=== PATIENT | male | born 1955 | race Caucasian/White ===

== ENCOUNTER → 2016-08-06 | Outpatient (CLI) | payer OTHER ==
[~2016-08-06] MED LIST: ALLER-FEX180 MG PO; AMITRIPTYLINE H10 M3 PO; AMLODIPINE BESYL5 MG PO; FLOMAX0.4 MG PO; LYRICA 50 MG50 MG PO; MEDROL DOSPAK21 TAB PO; MS CONTIN15 MG PO; NABUMETONE 500500 M1 PO; NABUMETONE 750750 M1 PO; NORCO 5-325 TA1 EACH PO; PERCOCET 10-321 EACH PO; PERCOCET PO; ZESTORETIC 20-1 EAC2 PO; [UNRECOGNIZED DRUG - REMARK]
== END ==
LOC: MRI 09:40
DX: M54.12 Radiculopathy, cervical region (principal); M54.2 Cervicalgia; M25.512 Pain in left shoulder

== ENCOUNTER → 2016-09-10 | Outpatient (CLI) | payer OTHER ==
[~2016-09-10] VITALS: Ht 177.8 cm; Wt 94.2 kg
--- NOTE | ~2016-09-10 | HPC ---
[facility] [address] [address] PAIN MANAGEMENT CONSULTATION Name: COLLIN MUELLER Room #: REG JC Cheli#: [id number] Admission: 09/10/16 Attend Phys: Corwin Edwards DO Discharge: Date of : 57 Report #: [id number] THIS REPORT FOR: //name// CC: Corwin Bautista MD DATE OF SERVICE: 09/10/2016 REFERRING PHYSICIAN: Bhavesh Bautista M.D. CHIEF COMPLAINT: Low back pain, lower extremity pain and paresthesias, chronic neck pain, bilateral upper extremity pain and paresthesias. HISTORY OF PRESENT ILLNESS: As you know, the patient is a 61-year-old male who returns today in followup visit with continued neck pain, bilateral upper extremity pain, low back pain and bilateral lower extremity pain. The patient indicates that he has appointments with neurosurgery in the very near future. He states he has been referred back to our clinic by Dr. Bhavesh Bautista. We contacted Dr. Bautista's office to question the reason for the referral. Dr. Bautista's office indicated today; he was not referred back to our clinic. He was advised to follow up with neurosurgery. The patient was under the impression he had to see us before he could move forward with neurosurgery options. He is here today indicating pain level of 8/10. He states his pain is dull, aching and sharp in sensation. He has had pain management in [place] in the past and was hopeful that he can return to [place] and see a neurosurgeon and undergo surgery. ALLERGIES: No known drug allergies. CURRENT MEDICATIONS: Amlodipine 5 mg per day and lisinopril and hydrochlorothiazide 20/25 once a day. SOCIAL HISTORY: The patient smokes up to a pack of tobacco per day. He has done so for 48 years. Denies IV or illicit drug use. Admits to 2 alcoholic beverages per week. He is employed, but is having difficulty with work due to ongoing pain. He is unaccompanied today. IMAGING: No new imaging available. PHYSICAL EXAMINATION: VITAL SIGNS: Blood pressure 147/92, pulse 106 and respiratory rate 20, unlabored. The patient is 97% on room air. Height 5 feet 10 inches tall, weight 207.6 pounds and BMI calculated at 29.8. GENERAL: Well-developed, well-nourished and well-hydrated 61-year-old male who appears stated age. He is placing current pain score at approximately 8/10. [facility] [address] [place] [address] PAIN MANAGEMENT CONSULTATION Name: COLLIN MUELLER Room #: REG [id number] Admission: 09/10/16 Attend Phys: Corwin Edwards DO Discharge: Date of : 57 Report #: [id number] HEENT: Normocephalic, atraumatic. Pupils equal, round and reactive to light. Extraocular muscles are intact. Sclerae nonicteric, without injection. Speech is fluent. The patient smells strongly of tobacco smoke. He is deemed a poor historian. EXTREMITIES: Show no clubbing, no cyanosis and no edema. MUSCULOSKELETAL: There is palpatory tenderness again noted over the paraspinal musculature of the lower lumbar spine. Seated straight leg raising negative. Supine straight leg raising positive, right. Romeo test negative. Modified Gaenslen's positive for axial back pain. The patient is using a cane for ambulation. Upper extremity strength appears equal and symmetrical. He is intact to light touch from C5 through T1 dermatomes. ASSESSMENT: 1. Symptomatic lumbar radiculopathy. 2. Spinal stenosis of the lumbar spine. 3. Displacement of lumbar intervertebral disk with radiculopathy. 4. Lumbosacral spondylosis with radiculopathy. 5. Chronic neck pain. 6. Chronic intractable pain. PLAN: 1. The patient has returned to our clinic per his recollection via referral from Dr. Bautista's office. We have contacted Dr. Bautisat's office to determine what exactly they wished us to evaluate in this patient's case. The patient stated he is looking toward surgical options for his low back and his cervical region. At this point, he does not need interventional pain management. Dr. Bautista's office indicates today that they did not refer the patient back to our clinic. Apparently, there was some misunderstanding. The patient was to see neurosurgery. He believed he had to go through pain management to get the referral. This is not the case. I have discussed with the patient today that if he is looking toward surgical options, certainly intervention treatments would be of little or no benefit. We recommend he follow up with a neurosurgeon as he is not interested in interventional treatments with our clinic. 2. No medication changes were made at today's visit. We would recommend the patient continue current therapy. We wish to thank you for the opportunity to see this patient again in consultation, though I believe this was in air. We will be returning his care to your capable hands and wish the patient well with his impending surgical procedures. I will be discharging him back to your clinic. By: [id number] [id number] Corwin Edwards DO /nt
[2016-09-10 14:33] VITALS: BP 147/92
== END ==
LOC: PAIN 06:37
DX: M54.5 Low back pain (principal); M79.622 Pain in left upper arm; M79.621 Pain in right upper arm; F17.210 Nicotine dependence, cigarettes, uncomplicated; M47.27 Other spondylosis with radiculopathy, lumbosacral region; M48.06 Spinal stenosis, lumbar region; M51.16 Intervertebral disc disorders with radiculopathy, lumbar region; M54.2 Cervicalgia; I10 Essential (primary) hypertension

== ENCOUNTER 2019-11-14 13:54 | Emergency (ER) | payer OTHER ==
[~2019-11-14] VITALS: Ht 177.8 cm; Wt 104.3 kg
[2019-11-14] MEDS ORDERED: NEURONTIN600 MG PO (14:27)
[2019-11-14] MEDS ORDERED: NEURONTIN300 MG PO (14:28)
[2019-11-14] MEDS ORDERED: VALTREX1000 MG PO (15:00)
[2019-11-14] MEDS ORDERED: NORCO 10-325 T1 EACH PO (15:00)
[2019-11-14] MEDS ORDERED: CAPSAICIN42.5 GM TOP (15:01)
[2019-11-14 15:27] VITALS: BP 140/91
== END 2019-11-14 15:28 | disposition home or self-care (01) ==
LOC: ER 13:54
DX: B02.9 Zoster without complications (principal); M54.9 Dorsalgia, unspecified; Z79.899 Other long term (current) drug therapy

== ENCOUNTER 2019-12-14 05:46 | Inpatient (IN) | payer OTHER ==
[~2019-12-14] VITALS: Ht 177.8 cm; Wt 105.7 kg
[2019-12-14] VITALS (15 sets, daily range): BP systolic 100–151; BP diastolic 55–103
[~2019-12-14 05:46] MED LIST changes: +CAPSAICIN42.5 GM TOP; +NEURONTIN300 MG PO; +NEURONTIN600 MG PO; +NORCO 10-325 T1 EACH PO; +VALTREX1000 MG PO
[2019-12-14 06:08] LABS: ABSOLUTE NEUTROPHILS 5.3 thou/uL (1.4-8.2); BASOPHILS 1.1 % (0.0-2.0); EOSINOPHILS 3.1 % (0.0-3.0); HEMATOCRIT 49.6 % (42.0-52.0); HEMOGLOBIN 16.6 gm/dL (14.0-18.0); LYMPHOCYTES 27.3 % (24.0-44.0); MCH 30.7 pg (26.0-34.0); MCHC 33.4 g/dL (28.0-37.0); MCV 91.9 fL (80.0-100.0); MONOCYTES 9.9 % (1.0-8.0); PLATELET COUNT 185 thou/uL (150-400); POLYS 58.6 % (36.0-66.0); RDW 15.6 % (10.5-14.5); WBC 9.1 thou/uL (4.0-11.0)
[2019-12-14 06:28] LABS: CREATININE 1.5 mg/dL (0.7-1.3); POTASSIUM 3.9 mmol/L (3.5-5.1)
[2019-12-14 06:34] LABS: ALBUMIN 3.6 g/dL (3.4-5.0); TOTAL BILIRUBIN 0.4 mg/dL (0.2-1.0); TOTAL PROTEIN 7.5 g/dL (6.4-8.2)
[2019-12-14 09:04] LABS: BE(vivo) -6.5 mmol/L (-2 to +3); HCO3 21.4 mmol/L (22.0-26.0); PO2 216.5 mmHg (80.0-100.0); pH 7.241 (7.360-7.450); sO2 99.3 % (92.0-98.0)
--- NOTE | 2019-12-14 09:45 | NUR ---
CALLED RT TO ASK THEM TO HELP ME TRANSPORT ROOM 9 TO ICU AT THIS TIME
--- NOTE | 2019-12-14 12:31 | NUR ---
VASCULAR ACCESS CONSULTED FOR PICC PLACEMENT. PT'S LABS,MEDS,HX,ORDER AND CONSENT VERIFIED. NASIMA BASILIC ATTEMPTED UNABLE TO PASS GUIDEWIRE. NASIMA CEPHALIC WAS WIDELY PATENT WITH USG. 5FR TL POWER PICC TRIMMED TO 45CM INSERTED TO 0CM. STAT CXR ORDERED.PT SEDATED,TOLERATED WELL.
--- NOTE | 2019-12-14 13:18 | NUR ---
CXR CONFIRMED PICC AT [facility]. PICC RELEASED FOR IMMEDIATE USE PER PROTOCOL TO [facility]
--- NOTE | 2019-12-14 15:29 | NUR ---
PT ADMITTED TO ICU AT 1050 FROM THE ED. PT WAS INTUBATED AND SEDATED UPON BEING ADMITTED TO ICU. PICC PLACED BY IV ACCESS TEAM. NG TUBE PLACED TO LEFT NARE IN ICU, PLACED TO LIS. ETT, NGT, PICC ALL CONFIRMED VIA RADIOGRAPH. PT HAS SHINGLES ON RIGHT FLANK/BACK. POOR PERFUSION OF LOWER EXTREMITIES. PT CONFIRMS THAT PT USES MARIJUANA, NO ETOH OR OTHER ILLICIT DRUG USE. I WAS TOLD THAT PT SPECIFIED TO ED STAFF THAT HE DOES NOT WANT TO HAVE CPR DONE IN THE EVENT OF AN ARREST. PT AND FAMILY HAVE BEEN UPDATED AND EDUCATED ON PT CONDITION AND POC. PT PROGRESSING TOWARDS POC. AFEBRILE, NO BM, ADEQUATE UOP.
[2019-12-15] VITALS (40 sets, daily range): BP systolic 88–115; BP diastolic 44–69
[2019-12-15 03:28] LABS: BE(vivo) -4.7 mmol/L (-2 to +3); HCO3 20.6 mmol/L (22.0-26.0); PCO2 38.8 mmHg (35.0-45.0); PO2 121.6 mmHg (80.0-100.0); pH 7.342 (7.360-7.450); sO2 98.2 % (92.0-98.0)
[2019-12-15 04:21] LABS: ABSOLUTE NEUTROPHILS 17.9 thou/uL (1.4-8.2); BASOPHILS 0.2 % (0.0-2.0); HEMOGLOBIN 15.1 gm/dL (14.0-18.0); MCH 30.5 pg (26.0-34.0); MCHC 32.9 g/dL (28.0-37.0); MCV 92.8 fL (80.0-100.0); MONOCYTES 1.1 % (1.0-8.0); PLATELET COUNT 157 thou/uL (150-400); POLYS 94.7 % (36.0-66.0); RBC 4.96 mil/uL (4.50-6.00); RDW 15.9 % (10.5-14.5); WBC 18.9 thou/uL (4.0-11.0)
[2019-12-15 05:05] LABS: ALBUMIN 2.8 g/dL (3.4-5.0); CALCIUM 8.3 mg/dL (8.5-10.1); CREATININE 1.5 mg/dL (0.7-1.3); POTASSIUM 3.9 mmol/L (3.5-5.1); TOTAL BILIRUBIN 0.3 mg/dL (0.2-1.0); TOTAL PROTEIN 6.1 g/dL (6.4-8.2)
--- NOTE | 2019-12-15 08:30 | NUR ---
ASSUMMED CARE AT 0700 TODAY. PATIENT IS SEDATED. BP DIPPING INTO THE UPPER 80'S WITH MAP IN THE LOWER 60'S, NS RESTARTED, DR ANTONY ROUNDED AND AWARE. DR GOMES ROUNDED EARLIER.
--- NOTE | 2019-12-15 09:55 | NUR ---
DAUGHTER BLANCA UPDATED ON HER FATHER'S CONDITION AND POC. QUESTIONS ANSWERED AND REASSURANCE GIVEN.
--- NOTE | 2019-12-15 11:29 | NUR ---
PATIENT REMOVED FROM ISOLATION PER ORDER 2ND COVID WAS NEGATIVE.
--- NOTE | 2019-12-15 11:47 | NUR ---
Recommend start vital high protein at 25ml/hr as goal rate while on current propofol amounts. Defer any fluid needs to physician. If water flushes start, also add 1 packet beneprotein in each flush.
--- NOTE | 2019-12-15 11:55 | NUR ---
cm attempted to contact , Kassi and/or dtr, Kaitlynn. no answer. cm to f/u w/family @ later date.
--- NOTE | 2019-12-15 14:56 | NUR ---
cm called pt home number to see if could speak with , cm was able to speak with daughter alvarez via phone call. intro to cm, transition of care ie hh and rehab. she reported " they live in house, 12 steps with hand rail from front door, have stair lift up from garage. have ramp in back of house to get in. he independent when feeling ok, never had this happen before. he has cane and 4ww. broken pain and nerve surgery years ago and not sure if he had any therapy for that. he still drives vehicle. manage his own medication with little assistance from daughter. he able to cook, clean, shower and dress with out any assistance. dr nieto is his dr. mom is on hospice at home, and he had to go to [facility] today but do not tell him that."/daughter alvarez. will cont following as needed for dc needs.
--- NOTE | 2019-12-15 16:37 | NUR ---
SPOKE WITH THE PATIENT'S DAUGHTER, BLANCA AND UPDATED HER TO THE PATIENT'S STATUS AND COVID RESULTS OF NEGAIVE. PATIENT IS PROGRESSING BP AND URINE OUTPUT HAVE IMPROVED WITH NS INFUSING. TUBE FEEDINGS INITIATED, BOLUS GIVEN. TONGUE STILL PROTRUDING OUT OF MOUTH, ORAL CARE GIVEN Q2H, WILL CONTINUE TO MONITOR.
[2019-12-16] VITALS (24 sets, daily range): BP systolic 98–148; BP diastolic 50–85
[2019-12-16 08:20] LABS: CALCIUM 8.2 mg/dL (8.5-10.1); CREATININE 1.4 mg/dL (0.7-1.3); POTASSIUM 4.3 mmol/L (3.5-5.1)
--- NOTE | 2019-12-16 17:32 | NUR ---
ASSUMED CARE @ 0700 12/16/19, PT ASSESSMENT AND VSS COMPLETE PER ICU PROTOCOL. PT ENCOUNTERED ON FENTANYL AND PROPOFOL FOR VENT MANAGEMENT. SEDATION VACATION PERFORMED TODAY, PT NOT ABLE TO FOLLOW ANY COMMANDS. NO CPAP TODAY DUE TO TONGUE STILL SWOLLEN PER DR ANTONY. DTR BLANCA CALLED , CODE VERIFIED, UPDATED ON PT'S STATUS.
[2019-12-17] VITALS (41 sets, daily range): BP systolic 126–187; BP diastolic 67–101
[2019-12-17 04:33] LABS: BE(vivo) -2.8 mmol/L (-2 to +3); HCO3 22.9 mmol/L (22.0-26.0); PCO2 42.9 mmHg (35.0-45.0); PO2 92.8 mmHg (80.0-100.0); pH 7.345 (7.360-7.450); sO2 96.7 % (92.0-98.0)
[2019-12-17 04:48] LABS: HEMATOCRIT 44.6 % (42.0-52.0); HEMOGLOBIN 14.5 gm/dL (14.0-18.0); MCH 30.2 pg (26.0-34.0); MCHC 32.4 g/dL (28.0-37.0); PLATELET COUNT 144 thou/uL (150-400); RDW 16.4 % (10.5-14.5); WBC 20.5 thou/uL (4.0-11.0)
[2019-12-17 05:00] LABS: ALBUMIN 2.6 g/dL (3.4-5.0); CALCIUM 8.1 mg/dL (8.5-10.1); CREATININE 1.3 mg/dL (0.7-1.3); POTASSIUM 4.5 mmol/L (3.5-5.1); TOTAL BILIRUBIN 0.2 mg/dL (0.2-1.0)
[2019-12-17 06:18] LABS: ABSOLUTE NEUTROPHILS 19.7 thou/uL (1.4-8.2)
[2019-12-17 06:19] LABS: ANISOCYTOSIS 1+; LARGE PLATELETS FEW; PLATELET ESTIMATE DECREASED
--- NOTE | 2019-12-17 07:57 | NUR ---
[facility] AT 0700. PROPOFOL TURNED TO STANDBY FOR SEDATION VACATION. DR GOMES IN TO EXAMINE PATIENT AND INFORMED OF ELEVATED WBC COUNT.
--- NOTE | 2019-12-17 09:30 | NUR ---
PATIENT HAD EPISODE OF COUGHING CONTINUOUSLY WHEN PLACED ON SEDATION VACATION. HEART RATE INCREASED TO THE 90'S. RESP RATE IN THE 20'S. PLACED BACK ON SEDATION, AND NOW CALM AND RESTING QUIETLY. DAUGHTER BLANCA AT BEDSIDE, TEARFUL, REASSURANCE GIVEN AND UPDATED ON HER FATHER'S CONDITON AND POC.
--- NOTE | 2019-12-17 10:06 | NUR ---
If not extubated please adjust tube feed goal to 35ml/hr with propofol. If propofol discontinues over weekend, then goal TF of 60ml/hr
--- NOTE | 2019-12-17 10:52 | NUR ---
nutrition recommendation update: off propofol. Spoke with RN, no feeding pump available. Please bolus 1 box vital high protein every 4hr. Pt still on maintenance IVF, defer any fluid needs to physician.
--- NOTE | 2019-12-17 14:51 | NUR ---
DR GOMES NOTIFIED OF ELEVATED BP OF 165/96. ORDERS RECEIVED, PATIENT'S SEDATION CHANGED FROM PROPOFOL TO PRECEDEX. PRECEDEX AND FENTANYL INCREASED FOR SEDATION.
--- NOTE | 2019-12-17 16:52 | NUR ---
TIMOTHY reviewed chart. Pt remains intubated. Vent weaning today. Pt will need therapy evals when pt is able to participate. No weekend discharge planned. Following to assist as needed with discharge planning.
--- NOTE | 2019-12-17 19:31 | NUR ---
PATIENT PROGRESSING SLOWLY TONGUE IS PROTRUDING LESS. BP REMAINS ELEVATED IN THE 180/100 RANGE AFTER METOPOROL GIVEN. DR GOMES NOTIFIED, ORDERS RECEIVED. SEDATION ALSO INCREASED THROUGHOUT THE DAY. URINE OUTPUT ADEQUATE AVERAGING GREATER THAN 70 ML/HR. BOLUS TUBE FEEDINGS GIVEN, RESIDUAL THIS EVENING WAS 150 ML. BOLUS RATE REMAINS AT 100 ML Q4H. O2 SAT IN THE UPPER 90'S TODAY.
--- NOTE | 2019-12-17 21:29 | NUR ---
BP REMAINING HIGH AFTER METOPROLOL AND HYDRALAZINE SBP 180'S. SPOKE TO DR GOMES, CLONIDINE PATCH NOW ON PT'S LEFT ARM. PRN HYDARALAZINE ALSO ORDERED. WILL CALL DR IF BP MAINTAINS ABOVE 200.
[2019-12-18] VITALS (37 sets, daily range): BP systolic 139–191; BP diastolic 71–102
--- NOTE | 2019-12-18 09:29 | NUR ---
ASSUMED CARE AT 0700, ASSESSMENT AND VITAL SIGNS COMPLETED PER ICU PROTOCOL. DR. GOMES ROUNDED THIS AM, PLAN OF CARE DISCUSSED. RN WILL CONTINUE TO MONITOR.
[2019-12-18 11:47] LABS: BE(vivo) -1.2 mmol/L (-2 to +3); HCO3 22.9 mmol/L (22.0-26.0); PO2 98.5 mmHg (80.0-100.0); pH 7.409 (7.360-7.450); sO2 97.6 % (92.0-98.0)
[2019-12-18 13:37] LABS: HEMATOCRIT 46.9 % (42.0-52.0); HEMOGLOBIN 15.9 gm/dL (14.0-18.0); MCHC 33.9 g/dL (28.0-37.0); MCV 91.5 fL (80.0-100.0); RBC 5.13 mil/uL (4.50-6.00); RDW 15.8 % (10.5-14.5); WBC 16.1 thou/uL (4.0-11.0)
[2019-12-18 13:45] LABS: ALBUMIN 2.6 g/dL (3.4-5.0); CALCIUM 7.8 mg/dL (8.5-10.1); POTASSIUM 4.3 mmol/L (3.5-5.1); TOTAL PROTEIN 6.3 g/dL (6.4-8.2)
[2019-12-19] VITALS (34 sets, daily range): BP systolic 125–194; BP diastolic 72–94
[2019-12-19 08:30] LABS: HEMATOCRIT 48.4 % (42.0-52.0); MCH 30.5 pg (26.0-34.0); MCHC 33.1 g/dL (28.0-37.0); MCV 92.1 fL (80.0-100.0); RBC 5.26 mil/uL (4.50-6.00); RDW 16.4 % (10.5-14.5); WBC 14.7 thou/uL (4.0-11.0)
--- NOTE | 2019-12-19 08:47 | NUR ---
ASSUMED CARE AT 0700, ASSESSMENT AND VITAL SIGNS COMPLETED PER ICU PROTOCOL. DR. GOMES ROUNDED THIS AM, PLAN OF CARE DISCUSSED. RN WILL CONTINUE TO MONITOR.
[2019-12-19 08:56] LABS: ALBUMIN 2.4 g/dL (3.4-5.0); CALCIUM 7.8 mg/dL (8.5-10.1); CREATININE 0.9 mg/dL (0.7-1.3); POTASSIUM 3.9 mmol/L (3.5-5.1); TOTAL BILIRUBIN 1.2 mg/dL (0.2-1.0); TOTAL PROTEIN 5.9 g/dL (6.4-8.2)
[2019-12-20] VITALS (7 sets, daily range): BP systolic 138–161; BP diastolic 69–99
--- NOTE | 2019-12-20 00:12 | NUR ---
Transfer report given to Fina [facility]ATFIELD (CCU) @ 0000. Pt tranferred on inpatient bed with possessions to CCU room 208. pt stable at time of transport
--- NOTE | 2019-12-20 00:50 | NUR ---
PT ARRIVED FROM ICU IN A BED. PATIENT ASSESSED AND VITALS TAKEN. C/O PAIN 8/10 MED GIVEN.
--- NOTE | 2019-12-20 14:35 | NUR ---
PT UP TO CHAIR WITH OT, EAGER TO WALK AND MOVE AROUND MORE, AMBULATED HALLWAYS WITH PT, R PICC PULLED OUT SOMEHOW DURING THE NIGHT, WAS REDRESSED, BUT DRESSING NOT STAYING WELL, I D/C'D IT, PERIPHERAL LINE STARTED BY IV TEAM, SPEECH SAW AND ORDERED A DIET, DR GOMES REMOVED CLONIDINE PATCH BELIEVING IT WAS THE CAUSE OF ALLERGY, WILL WATCH BP, FELIZ D/C'D PER PT'S REQUEST, VOIDING IN URINAL,
[2019-12-21] VITALS (7 sets, daily range): BP systolic 141–163; BP diastolic 91–121
--- NOTE | 2019-12-21 04:28 | NUR ---
Assumed pt care at 1900. Pt is alert and oriented. No sign of distress noted in pt. Fall precaution in place. Assessment completed and documented. Vital signs stable. Assessment completed and documented. Scheduled meds administered to pt. Pain med administered upon request. Tolerated PO intake. No acute events overnight night. No further needs at this time.
[2019-12-21] MEDS ORDERED: FLOMAX0.4 MG PO (09:54)
[2019-12-21] MEDS ORDERED: AMLODIPINE BESY10 MG PO (09:55)
[2019-12-21] MEDS ORDERED: PREDNISONE 5 MG5 M1 PO (09:57)
--- NOTE | 2019-12-21 16:29 | NUR ---
Patient to dc home today. He has no preference for HH agency and agreeable to [facility]. Faxed referral they are accepting. Verified address
--- NOTE | 2019-12-21 17:29 | NUR ---
ASSUMED CARE OF PT AT SHIFT CHANGE. ASSESSMETNS CHARTED. MEDS GIVEN PER JUN. PT A&OX4, C/O PAIN TREATED WITH PO MEDS WITH PARTIAL RELIEF. PT [place] ON MONITOR, NO DISTRESS NOTED. PT UNSTEADY ON FEET, USED WALKER TO BATHROOM. DISCHARGE ORDERS AND INSTRUCTIONS COMPLETE. TELE AND IV DC'D. PT TAKEN TO ER ENTRANCE IN WHEELCHAIRT TO WAITING PRIVATE CAR.
== END 2019-12-21 17:49 | disposition home health service (06) | DRG 207 ==
LOC: ER 05:46 → EROBS 08:14 → ICU 08:14 → 2N 12-20 00:10
PROVIDERS: Emergency Medicine; Pediatrics; ADMIT Family Medicine; ATTEND Family Medicine
PROC: 02HV33Z Insertion of Infusion Device into Superior Vena Cava, Percutaneous Approach (ICD-10-PCS; principal; 2019-12-14)
PROC: 5A1955Z Respiratory Ventilation, Greater than 96 Consecutive Hours (ICD-10-PCS; principal; 2019-12-14)
PROC: 0BH18EZ Insertion of Endotracheal Airway into Trachea, Via Natural or Artificial Opening Endoscopic (ICD-10-PCS; principal; 2019-12-14)
DX: J96.01 Acute respiratory failure with hypoxia (principal); N17.9 Acute kidney failure, unspecified; J98.11 Atelectasis; T78.3XXA Angioneurotic edema, initial encounter; F17.210 Nicotine dependence, cigarettes, uncomplicated; I10 Essential (primary) hypertension; Z20.828 Contact with and (suspected) exposure to other viral communicable diseases; R13.10 Dysphagia, unspecified; G62.9 Polyneuropathy, unspecified; N40.0 Benign prostatic hyperplasia without lower urinary tract symptoms; Z79.899 Other long term (current) drug therapy; Z88.8 Allergy status to other drugs, medicaments and biological substances
CPT/HCPCS: 10078; 10081; 10203; 27000

== ENCOUNTER 2019-12-25 13:04 | Emergency (ER) | payer OTHER ==
[~2019-12-25] VITALS: Ht 177.8 cm; Wt 101.2 kg
[~2019-12-25 13:04] MED LIST changes: +AMLODIPINE BESY10 MG PO; +PREDNISONE 5 MG5 M1 PO
[2019-12-25 13:48] LABS: HEMATOCRIT 44.3 % (42.0-52.0); HEMOGLOBIN 14.6 gm/dL (14.0-18.0); MCH 30.2 pg (26.0-34.0); MCV 91.5 fL (80.0-100.0); PLATELET COUNT 108 thou/uL (150-400); RBC 4.84 mil/uL (4.50-6.00); WBC 21.2 thou/uL (4.0-11.0)
[2019-12-25 13:54] LABS: ANION GAP 8 mmol/L (7-16); BUN 30 mg/dL (7-18); CHLORIDE 104 mmol/L (98-107); CO2 29 mmol/L (21-32); CREATININE 1.2 mg/dL (0.7-1.3); GLUCOSE 131 mg/dL (74-106); POTASSIUM 3.8 mmol/L (3.5-5.1); SODIUM 141 mmol/L (136-145)
[2019-12-25 14:02] LABS: TROPONIN-I <0.06 ng/mL (<0.06)
[2019-12-25 14:18] LABS: ANISOCYTOSIS 1+; LARGE PLATELETS OCCASIONAL
[2019-12-25 15:56] LABS: URINE BILIRUBIN NEGATIVE (Negative); URINE BLOOD NEGATIVE (Negative); URINE CLARITY CLEAR; URINE COLOR YELLOW; URINE GLUCOSE-RANDOM* NEGATIVE (Negative); URINE KETONES NEGATIVE (Negative); URINE LEUKOCYTES-REFLEX NEGATIVE (Negative); URINE NITRITE-REFLEX NEGATIVE (Negative); URINE PROTEIN (DIPSTICK) NEGATIVE (Negative); URINE SPECIFIC GRAVITY 1.015 (1.005-1.035); URINE UROBILINOGEN 0.2 E.U./dl (0.2-1.0)
[2019-12-25] MEDS ORDERED: K-DUR 20 MEQ T20 MEQ PO (16:39)
[2019-12-25] MEDS ORDERED: LASIX 40 MG TAB40 MG PO (16:39)
[2019-12-25 18:05] VITALS: BP 146/79
--- NOTE | 2019-12-26 16:42 | EKG ---
[facility] [place] [address] [place] [address] ELECTROCARDIOGRAM REPORT Name: COLLIN MUELLER Room #: DEP Cheli#: [id number] Admission: 12/25/19 Attend Phys: Discharge: 12/25/19 Date of : 57 Report #: [id number] THIS REPORT FOR: cc: Bhavesh Bautista MD, Neal A. 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1955 Requested By: Zachary Oliveros Order Number: [id number] MD: Mukul Arreola Measurements Intervals [place] Rate: 111 P: 69 GA: 128 QRS: -32 QRSD: 83 T: 87 QT: 334 QTc: 454 Interpretive Statements Sinus tachycardia Abnormal R-wave progression, early transition Borderline T wave abnormalities Compared to ECG 04/08/2012 12:43:27 Atrial premature complex(es) now present T-wave abnormality now present Electronically Signed On 12-26-2019 16:41:54 CDT by Mukul Arreola [email or web address] <ELECTRONICALLY SIGNED> By: Mukul Arreola MD, FAC 12/26/19 1641 [id number] [id number] Mukul Arreola MD, FAC /EPI
== END 2019-12-25 18:06 | disposition home or self-care (01) ==
LOC: ER 13:04
PROVIDERS: Emergency Medicine
DX: R60.1 Generalized edema (principal); F17.210 Nicotine dependence, cigarettes, uncomplicated; Z79.899 Other long term (current) drug therapy; Z88.8 Allergy status to other drugs, medicaments and biological substances

== ENCOUNTER 2019-12-30 23:16 | Inpatient (IN) | payer OTHER ==
[~2019-12-30] VITALS: Ht 177.8 cm; Wt 99.8 kg
[~2019-12-30 23:16] MED LIST changes: +K-DUR 20 MEQ T20 MEQ PO; +LASIX 40 MG TAB40 MG PO
[2019-12-30 23:17] VITALS: BP 141/81
[2019-12-31] VITALS (16 sets, daily range): BP systolic 122–162; BP diastolic 66–90
[2019-12-31 00:01] LABS: BASOPHILS 0.5 % (0.0-2.0); HEMATOCRIT 40.5 % (42.0-52.0); HEMOGLOBIN 13.6 gm/dL (14.0-18.0); LYMPHOCYTES 14.5 % (24.0-44.0); MCH 31.1 pg (26.0-34.0); MCHC 33.5 g/dL (28.0-37.0); MCV 92.8 fL (80.0-100.0); MONOCYTES 8.4 % (1.0-8.0); PLATELET COUNT 192 thou/uL (150-400); POLYS 74.6 % (36.0-66.0); RBC 4.36 mil/uL (4.50-6.00); WBC 10.8 thou/uL (4.0-11.0)
[2019-12-31 00:04] LABS: CALCIUM 8.7 mg/dL (8.5-10.1); CREATININE 1.5 mg/dL (0.7-1.3)
[2019-12-31 06:17] LABS: CALCIUM 8.6 mg/dL (8.5-10.1); CREATININE 1.4 mg/dL (0.7-1.3); POTASSIUM 3.7 mmol/L (3.5-5.1)
--- NOTE | 2019-12-31 15:05 | NUR ---
had am rounds with bedside nurse. cm cont to wear face mask and shield. pt back again with lip and leg swelling now. he was just her few weeks ago for facial swelling and had to be intubated to protect his air way then dc home with [facility] . cm visited with daughter edwige via phone call, he would want to come home and do therapy until he can get back to the water therapy he was doing. prior to last hospital admit and this one, he was independent, has cane and 4ww, drives, manage own medication with little assist from daughter. have steps and ramp into home. stair glide at home. now needing little assist with dressing per daughter. he going to want to come home because his daughter coming into town, he not driving since las [facility] hospital stay per daughter edwige. referral sent to [facility]. dcp: home with [facility] sim[facility] # [phone], fax dc orders to [phone] edwige.
--- NOTE | 2019-12-31 15:34 | NUR ---
PT ON SERVICE WITH [facility] PRIOR TO ADMISSION FAXED REFERRAL FOR RESUMPTION OF CARE SPOKE WITH PERNELL SHE RECEIVED REFERRAL AND WILL RESUME CARE AT DC. IF PT DISCHARGES OVER THE WEEKEND PLEASE FAX DC ORDERS TO [phone] AND CALL [phone] TO NOTIFY OF DC.
--- NOTE | 2019-12-31 20:29 | NUR ---
PER PT REQUEST WALLET WAS HANDED BY THIS RN TO ZEKE FERGUSON IN ED ENTRANCE.
--- NOTE | 2019-12-31 20:32 | NUR ---
LATE ENTRY NOTE: PT ARRIVED FROM ED AT APPROXIMATELY 0430. PT ORIENTATED TO ICU ROOM. QUESTIONS WERE ANSWERED. PT DENIED ANY SOA OR DIFFICULTY BREATHING AT TIME OF ADMISSION. DR GOMES UPDATED AT BEDSIDE AT 0715.
[2020-01-01] VITALS: BP 117/78
[2020-01-01 00:01] VITALS: BP 117/78
[2020-01-01 04:00] VITALS: BP 148/83
--- NOTE | 2020-01-01 04:29 | NUR ---
REPORT RECEIVED. PATIENT IS A/O X4. DENIES SOA, PAIN, N/V. AFEBRILE. VSS. USES BEDSIDE COMMODE X 1 ASSIST. DENIES NEEDS. PLEASANT. CURRENTLY RESTING IN BED. CALL LIGHT WITHIN REACH. WILL KEEP MONITORING.
[2020-01-01 07:32] VITALS: BP 129/76
[2020-01-01] MEDS ORDERED: BENADRYL25 MG PO (09:01)
[2020-01-01] MEDS ORDERED: PREDNISONE 5 MG5 M1 PO (09:01)
[2020-01-01] MEDS ORDERED: PEPCID20 MG PO (09:02)
--- NOTE | 2020-01-01 09:44 | NUR ---
ASSUMED CARE @ 0700 01/01/20, PT ASSESSMENT AND VSS COMPLETE PER MED-SURG STATUS. DR GOMES AT BEDSIDE @ APPROX 0900, DISCHARGE ORDERS PLACED. DISCHARGE INSTRUCTIONS GIVEN @ 0930, SIGNATURE PAGE ACKNOWLEDGED AND SIGNED BY PATIENT.
== END 2020-01-01 10:26 | disposition home health service (06) | DRG 915 ==
LOC: ER 23:16 → ICU 12-31 02:37 → EROBS 12-31 02:37 → ICU 12-31 04:10
PROVIDERS: Emergency Medicine; Nurse Practitioner Family; ADMIT Hospitalist; ATTEND Family Medicine
DX: T78.3XXA Angioneurotic edema, initial encounter (principal); J96.01 Acute respiratory failure with hypoxia; F12.90 Cannabis use, unspecified, uncomplicated; F17.210 Nicotine dependence, cigarettes, uncomplicated; I10 Essential (primary) hypertension; G62.9 Polyneuropathy, unspecified; Z79.899 Other long term (current) drug therapy; Z88.8 Allergy status to other drugs, medicaments and biological substances; Z72.89 Other problems related to lifestyle; Y92.89 Other specified places as the place of occurrence of the external cause
CPT/HCPCS: 10078

== ENCOUNTER 2020-01-21 20:11 | Emergency (ER) | payer OTHER ==
[~2020-01-21] VITALS: Ht 177.8 cm; Wt 101.2 kg
[~2020-01-21 20:11] MED LIST changes: +BENADRYL25 MG PO; +PEPCID20 MG PO
[2020-01-21] MEDS ORDERED: LASIX 40 MG TAB40 MG PO (21:18)
[2020-01-21 21:45] VITALS: BP 141/82
== END 2020-01-21 21:45 | disposition home or self-care (01) ==
LOC: ER 20:11
DX: T78.3XXA Angioneurotic edema, initial encounter (principal); F17.210 Nicotine dependence, cigarettes, uncomplicated; Z79.899 Other long term (current) drug therapy; Z88.8 Allergy status to other drugs, medicaments and biological substances

== ENCOUNTER 2020-11-27 01:53 | Emergency (ER) | payer OTHER ==
[~2020-11-27] VITALS: Ht 177.8 cm; Wt 104.3 kg
[2020-11-27 05:24] VITALS: BP 178/121
== END 2020-11-27 06:15 | disposition home or self-care (01) ==
LOC: ER 01:53
PROVIDERS: Emergency Medicine
DX: U07.1 COVID-19 (principal); J06.9 Acute upper respiratory infection, unspecified; F17.210 Nicotine dependence, cigarettes, uncomplicated; Z79.899 Other long term (current) drug therapy; Z88.6 Allergy status to analgesic agent